=== PATIENT | male | born 1985 | race Caucasian/White ===

== ENCOUNTER 2023-06-04 13:31 | Outpatient (REF) | payer BC, SELFPAY ==
[2023-06-04 21:05] LABS: Source Nasal/Nares
[2023-06-04 21:50] LABS: COVID-19 PCR Negative (Negative)
== END 2023-06-04 13:32 | disposition home or self-care (01) ==
LOC: LBN 13:31
PROVIDERS: PCP Nurse Practitioner Family; Visit Provider Physician Assistant Medical
DX: J02.9 Acute pharyngitis, unspecified (principal); Z20.822 Contact with and (suspected) exposure to COVID-19
CPT/HCPCS: 87635; 87070

== ENCOUNTER 2024-11-21 15:57 | Outpatient (REF) | payer OTHER, SELFPAY | END 2024-11-21 15:58 | disposition home or self-care (01) | LOC: LBN 15:57 | PROVIDERS: Visit Provider Physician Assistant Medical | DX: J02.9 Acute pharyngitis, unspecified (principal) | CPT/HCPCS: 87070 ==

== ENCOUNTER 2025-06-12 10:54 | Outpatient (CLI) | payer BC, SELFPAY ==
[2025-06-12 11:09] LABS: HCT 43.5 % (40.0-50.0); HGB 14.7 g/dL (13.5-17.5); MCH 29.6 pg (27.0-33.0); MCHC 33.8 % (32.0-36.0); MCV 88 fL (80-95); MPV 10.6 fL (8.0-11.0); Platelet Count 164 10^3/uL (130-400); RBC 4.96 10^6/uL (4.36-5.78); RDW 12.8 % (11.8-14.1); RDW-SD 41.5 fL; WBC 5.86 10^3/uL (4.4-10.8)
[2025-06-12 14:03] LABS: Hemoglobin A1C 5.3 % (<5.7)
[2025-06-12 14:06] LABS: ALT 28 U/L (10-49); AST 22 U/L (<34); Albumin 4.6 g/dL (3.4-5.0); Alkaline Phosphatase 54 U/L (46-116); Anion Gap 6.2 mmol/L (3-11); BUN 13 mg/dL (9-23); Bilirubin, Total 0.50 mg/dL (0.2-1.2); CO2 30.8 mmol/L (20.0-31.0); Calcium 9.4 mg/dL (8.3-10.6); Chloride 108 mmol/L (98-107); Cholesterol 173 mg/dL (<200); Glucose 92 mg/dL (74-106); HDL Cholesterol 70 mg/dL (>40); Potassium 4.5 mmol/L (3.5-5.1); Sodium 145 mmol/L (136-145); Total Protein 7.2 g/dL (5.7-8.2)
== END 2025-06-12 10:55 | disposition home or self-care (01) ==
LOC: LBO 10:58
DX: Z00.00 Encounter for general adult medical examination without abnormal findings (principal)
CPT/HCPCS: 36415; 80053; 80061; 85027; 83036